=== PATIENT | female | born 1995 | race African-American/Black ===

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

== ENCOUNTER 2017-05-24 09:56 | Emergency (ER) | payer SELFPAY ==
[~2017-05-24] VITALS: Ht 157.5 cm; Wt 64.0 kg
[~2017-05-24 09:56] MED LIST: POLY10O EACH EYE
[2017-05-24 09:57] VITALS: BP 120/71; PULSE 107; RESP 20; TEMP 99.1; O2SAT 97
[2017-05-24] MEDS ORDERED: SODIUM CHLOR 0.9% 1000 ML INJ 1,000 ML IV SCH (10:20)
--- NOTE | 2017-05-24 10:24 | PD ---
HPI Chief Complaint: Abdominal Pain Time Seen by Provider: 10:09 Travel History International Travel<30 days: No Contact w/Intl Traveler<30days: No Traveled to known affect area: No History of Present Illness HPI This is a 21-year-old female who presents for evaluation of abdominal pain, nausea and vomiting. She reports that 2 weeks ago she was expressing some left- sided abdominal pain which she attributed to her menstruation. She reports that since then the pain is become more of a crampy generalized abdominal pain which has persisted. She saw a practitioner at her urgent care clinic at [facility] 2 days ago who felt that her symptoms were most likely secondary to constipation. She was given a stool softener. Her symptoms have worsened since then and now the pain has primarily migrated into the right lower quadrant of the abdomen which is what prompted the evaluation today. Pain is sharp, constant, no alleviating factors. She also endorses nausea with several episodes of nonbloody emesis over the past 2 days. She reports that initially she was having some vaginal discharge which was brown and she attributed to menstruation. This ceased 2 days ago. She is sexually active with one partner. She denies dysuria, flank pain, diarrhea. No history of abdominal surgeries. No other complaints. PFSH Past Medical History Immunizations Current: Yes ?: Not LMP: MAY 14 2017 Social History Alcohol Use: No Tobacco Use: No Substance Use: No Allergies-Medications (Allergen,Severity, Reaction): Coded Allergies: No Known Allergies (Unverified Adverse Reaction, Unknown, 05/24/17) Reported Meds & Prescriptions Reported Meds & Active Scripts Active Phenergan (Promethazine HCl) 25 Mg Tablet 25 Mg PO Q6H PRN Flagyl (Metronidazole) 500 Mg Tab 500 Mg PO BID Keflex (Cephalexin) 500 Mg Cap 500 Mg PO Q12H 7 Days Polytrim Opth Drops (Polymyxin/Trimethoprim Sulfate) 10,000-0.1 Unit/Ml-% Soln 2 Drop EACH EYE Q6HR 7 Days Review of Systems Except as stated in HPI: all other systems reviewed are Neg Physical Exam Narrative GENERAL: Well-developed well-nourished female in no acute distress. Heart rate in the low 100s. SKIN: Warm and dry. HEAD: Atraumatic. Normocephalic. EYES: Pupils equal and round. No scleral icterus. No injection or drainage. ENT: No nasal bleeding or discharge. Mucous membranes pink and moist. NECK: Trachea midline. No JVD. CARDIOVASCULAR: Regular rate and rhythm. No murmur appreciated. RESPIRATORY: No accessory muscle use. Clear to auscultation. Breath sounds equal bilaterally. GASTROINTESTINAL: Abdomen soft, focal tenderness to palpation in the right lower quadrant of the abdomen without guarding. There is mild left lower quadrant tenderness as well. Negative Rovsing's. Negative psoas sign. No tenderness to palpation in the right upper quadrant left upper quadrant. No CVA tenderness. Pelvic examination in the presence of a female nurse: Normal external genitalia. There is no cervical motion tenderness. There is scant white discharge noted in the vaginal canal. There is tenderness to palpation of the right lower quadrant/adnexal region. No masses. MUSCULOSKELETAL: No obvious deformities. No clubbing. No cyanosis. No edema. NEUROLOGICAL: Awake and alert. No obvious cranial nerve deficits. Motor grossly within normal limits. Normal speech. PSYCHIATRIC: Appropriate mood and affect; insight and judgment normal. Data Data Last Documented VS Vital Signs Date Time Temp Pulse Resp B/P (MAP) Pulse Ox O2 Delivery O2 Flow Rate FiO2 05/24/17 09:57 99.1 107 20 120/71 (87) 97 Room Air Orders Orders Complete Blood Count With Diff (05/24/17 10:20) Comprehensive Metabolic Panel (05/24/17 10:20) Lipase (05/24/17 10:20) Urinalysis - C+S If Indicated (05/24/17 10:20) Iv Access Insert/Monitor (05/24/17 10:20) Ecg Monitoring (05/24/17 10:20) Oximetry (05/24/17 10:20) Ondansetron Inj (Zofran Inj) (05/24/17 10:30) Sodium Chlor 0.9% 1000 Ml Inj (Ns 1000 M (05/24/17 10:20) Sodium Chloride 0.9% Flush (Ns Flush) (05/24/17 10:30) Ed Urine Pregnancytest Poc (05/24/17 10:20) Gc And Chlamydia Pcr (05/24/17 10:20) Wet Prep Profile (05/24/17 10:20) Ct Abd/Pel W Iv Contrast(Rout) (05/24/17 10:52) Urine Culture (05/24/17 10:32) Iohexol 350 Inj (Omnipaque 350 Inj) (05/24/17 11:17) Metronidazole (Flagyl) (05/24/17 11:45) Azithromycin Powd Pack (Zithromax Powd P (05/24/17 11:45) Ceftriaxone Inj (Rocephin Inj) (05/24/17 11:45) Lidocaine 1% Inj (50 Ml) (Xylocaine 1% I (05/24/17 11:45) Ed Discharge Order (05/24/17 11:41) Ketorolac Inj (Toradol Inj) (05/24/17 11:45) Potassium Chloride (Kcl) (05/24/17 11:45) Labs Laboratory Tests Test 05/24/17 10:30 05/24/17 10:32 05/24/17 10:40 White Blood Count 9.8 TH/MM3 Red Blood Count 4.02 MIL/MM3 Hemoglobin 11.4 GM/DL Hematocrit 33.9 % Mean Corpuscular Volume 84.4 FL Mean Corpuscular Hemoglobin 28.4 PG Mean Corpuscular Hemoglobin Concent 33.7 % Red Cell Distribution Width 13.4 % Platelet Count 295 TH/MM3 Mean Platelet Volume 7.7 FL Neutrophils (%) (Auto) 70.9 % Lymphocytes (%) (Auto) 19.5 % Monocytes (%) (Auto) 9.5 % Eosinophils (%) (Auto) 0.0 % Basophils (%) (Auto) 0.1 % Neutrophils # (Auto) 7.0 TH/MM3 Lymphocytes # (Auto) 1.9 TH/MM3 Monocytes # (Auto) 0.9 TH/MM3 Eosinophils # (Auto) 0.0 TH/MM3 Basophils # (Auto) 0.0 TH/MM3 CBC Comment DIFF FINAL Differential Comment Blood Urea Nitrogen 7 MG/DL Creatinine 0.77 MG/DL Random Glucose 83 MG/DL Total Protein 8.7 GM/DL Albumin 3.5 GM/DL Calcium Level 9.1 MG/DL Alkaline Phosphatase 46 U/L Aspartate Amino Transf (AST/SGOT) 16 U/L Alanine Aminotransferase (ALT/SGPT) 22 U/L Total Bilirubin 0.3 MG/DL Sodium Level 138 MEQ/L Potassium Level 3.2 MEQ/L Chloride Level 102 MEQ/L Carbon Dioxide Level 26.9 MEQ/L Anion Gap 9 MEQ/L Estimat Glomerular Filtration Rate 117 ML/MIN Lipase 212 U/L Urine Color YELLOW Urine Turbidity HAZY Urine pH 6.0 Urine Specific [place] 1.018 Urine Protein 30 mg/dL Urine Glucose (UA) NEG mg/dL Urine Ketones 40 mg/dL Urine Occult Blood NEG Urine Nitrite NEG Urine Bilirubin NEG Urine Urobilinogen LESS THAN 2.0 MG/DL Urine Leukocyte Esterase LARGE Urine RBC 6 /hpf Urine WBC 26 /hpf Urine Squamous Epithelial Cells 4 /hpf Urine Bacteria FEW /hpf Urine Mucus MANY /lpf Microscopic Urinalysis Comment CULTURE INDICATED Clue Cells (Wet Prep) PRESENT Vaginal Trichomonas (Wet Prep) NONE SEEN Vaginal Yeast (Wet Prep) NONE SEEN MDM Medical Decision Making Medical Screen Exam Complete: Yes Emergency Medical Condition: Yes Medical Record Reviewed: Yes Differential Diagnosis Appendicitis, tubo-ovarian abscess, ovarian torsion, pelvic inflammatory disease , ovarian cyst, ectopic , diverticulitis, colitis Narrative Course The patient will be placed on ECG monitoring pulse oximetry. IV fluids, Zofran. Plan is for lab work, urinalysis, pelvic examination. Wet prep is positive for clue cells, negative for yeast and Trichomonas. GC probe pending at the time of this dictation. Urinalysis reveals 26 wbc's, 6 rbc 's with some squamous epithelial cells, cultures currently pending. CT of the abdomen and pelvis reveals Unremarkable appearing bowel and mesentery. The appendix could not be visualized however there is no inflammation in the right lower quadrant suggest appendicitis. Reassuringly the patient is not febrile, no leukocytosis. Upon examination the patient does feel improved after the administration of Zofran and fluids. I discussed the findings of the patient's results with her. She will be treated with Flagyl for bacterial vaginosis, Keflex for urinary tract infection. He understands that the appendix could not be visualized and so if her symptoms worsen over the next 1-2 days she understands to return here. Empirically she is being given azithromycin and Rocephin pending GC results. Her potassium was 3.2 likely secondary to vomiting, this will be replenished orally here in the ED. Diagnosis Primary Impression: Bacterial vaginosis Additional Impressions: Urinary tract infection Hypokalemia Additional Instructions: Medication as prescribed. Slowly advance diet as tolerated. Phenergan for nausea. As discussed, return for any acutely new or worsening symptoms, particularly worsening right lower quadrant abdominal pain, intractable nausea and vomiting, fevers. Med/Other Pt SpecificInfo: Prescription(s) given Scripts Promethazine (Phenergan) 25 Mg Tablet 25 MG PO Q6H Y for NAUSEA OR VOMITING, #20 TAB 0 Refills Prov: Gary Samaniego MD 05/24/17 Metronidazole (Flagyl) 500 Mg Tab 500 MG PO BID for Infection, #13 TAB 0 Refills Prov: Gary Samaniego MD 05/24/17 Cephalexin (Keflex) 500 Mg Cap 500 MG PO Q12H for Infection for 7 Days, #14 CAP 0 Refills Prov: Gary Samaniego MD 05/24/17 Disposition: 01 DISCHARGE HOME Condition: Stable Curt Pat May 24, 2017 10:24
[2017-05-24] MEDS ORDERED: SODIUM CHLORIDE 0.9% FLUSH 10 ML FLUSH IV FLUSH PRN (10:30)
[2017-05-24] MEDS ORDERED: ONDANSETRON HCL 4 MG/2 ML VIAL IVP ONE (10:30)
[2017-05-24 10:45] VITALS: O2SAT 100
[2017-05-24 10:53] LABS: BASOPHIL % 0.1 % (0.0-2.0); HEMATOCRIT 33.9 % (35.0-46.0); HEMOGLOBIN 11.4 GM/DL (11.6-15.3); LYMPH % 19.5 % (9.0-44.0); LYMPHOCYTE # 1.9 TH/MM3 (1.0-4.8); MEAN CELL VOLUME 84.4 FL (80.0-100.0); MEAN CORPUSCULAR HEMOGLOBIN 28.4 PG (27.0-34.0); MEAN CORPUSCULAR HGB CONC 33.7 % (32.0-36.0); MEAN PLATELET VOLUME 7.7 FL (7.0-11.0); MONO % 9.5 % (0.0-8.0); MONOCYTE # 0.9 TH/MM3 (0-0.9); NEUT % 70.9 % (16.0-70.0); PLATELET COUNT 295 TH/MM3 (150-450); RED BLOOD COUNT 4.02 MIL/MM3 (4.00-5.30); RED CELL DISTRIBUTION WIDTH 13.4 % (11.6-17.2); WHITE BLOOD COUNT 9.8 TH/MM3 (4.0-11.0)
[2017-05-24 11:04] LABS: BACTERIA, URINE FEW /hpf; BILIRUBIN, URINE NEG (NEG); BLOOD, URINE NEG (NEG); GLUCOSE,URINE NEG (NEG); KETONE, URINE 40 mg/dL (NEG); MUCUS URINE MANY /lpf (OCC); NITRITE,URINE NEG (NEG); SQUAMOUS EPITHELIAL CELL URINE 4 /hpf (0-5); URINE COLOR YELLOW (YELLW/STRAW); URINE LEUKOCYTE ESTERASE LARGE (NEG)
[2017-05-24 11:12] LABS: ALBUMIN 3.5 GM/DL (3.4-5.0); ALT (GPT) 22 U/L (9-42); BICARBONATE 26.9 MEQ/L (21.0-32.0); BLOOD UREA NITROGEN 7 MG/DL (7-18); CALCIUM 9.1 MG/DL (8.5-10.1); CHLORIDE 102 MEQ/L (98-107); CREATININE 0.77 MG/DL (0.50-1.00); GLOMERULAR FILTRATION RATE 117 ML/MIN (>89); GLUCOSE,RANDOM 83 MG/DL (74-106); LIPASE 212 U/L (73-393); SODIUM (NA) 138 MEQ/L (136-145)
[2017-05-24 11:15] LABS: ALKALINE PHOSPHATASE 46 U/L (45-117); AST (GOT) 16 U/L (16-38); TOTAL BILIRUBIN ADULT 0.3 MG/DL (0.2-1.0); TOTAL PROTEIN 8.7 GM/DL (6.4-8.2)
[2017-05-24] MEDS ORDERED: IOHEXOL 350 MG/ML 10 ML VIAL (for RAD DIAG) IVCONTRAST ONE (11:17)
--- NOTE | 2017-05-24 11:31 | RADRPT ---
EXAM DATE/TIME: 05/24/2017 11:00 [facility] COMPARISON: No previous studies available for comparison. INDICATIONS : Abdominal pain, vomiting IV CONTRAST: 93 cc Omnipaque 350 (iohexol) IV ORAL CONTRAST: No oral contrast ingested. RADIATION DOSE: 6.64 CTDIvol (mGy) MEDICAL HISTORY : None SURGICAL HISTORY : None. ENCOUNTER: Initial ACUITY: 1 week PAIN SCALE: 10/10 LOCATION: Abdomen TECHNIQUE: Volumetric scanning of the abdomen and pelvis was performed. Using automated exposure control and ad justment of the mA and/or kV according to patient size, radiation dose was kept as low as reasonably achievable to obtain optimal diagnostic quality images. DICOM format image data is available electro nically for review and comparison. FINDINGS: LOWER LUNGS: The visualized lower lungs are clear. LIVER: Homogeneous density without lesion. There is no dilation of the biliary tree. No calcified gallston es. SPLEEN: Normal size without lesion. PANCREAS: Within normal limits. KIDNEYS: Normal in size and shape. There is no mass, stone or hydronephrosis. The left kidney is located in t he left side of the pelvis. ADRENAL GLANDS: Within normal limits. VASCULAR: There is no aortic aneurysm. BOWEL/MESENTERY: Normal contrast was given limiting sensitivity. The stomach, small bowel, and colon demonstrate no ac north fork abnormality. There is no free intraperitoneal air or fluid. ABDOMINAL WALL: Within normal limits. RETROPERITONEUM: There is no lymphadenopathy. BLADDER: No wall thickening or mass. REPRODUCTIVE: Within normal limits. INGUINAL: There is no lymphadenopathy or hernia. MUSCULOSKELETAL: Within normal limits for patient age. CONCLUSION: 1. The left kidney is located in the left side of the lower abdomen and pelvis but is otherwise unrem arkable with no hydronephrosis. Right kidney is within normal limits is in normal position. 2. The bowel and mesentery appear grossly unremarkable. The appendix could not be visualized. No oral contrast was given limiting sensitivity. Jeremy Salgado MD on May 24, 2017 at 11:24 Board Certified Radiologist. This report was verified electronically.
[2017-05-24] MEDS ORDERED: CEPH-460 PO (11:45)
[2017-05-24] MEDS ORDERED: metroNIDAZOLE 500 MG TAB PO ONE (11:45)
[2017-05-24] MEDS ORDERED: KETOROLAC TROMETHAMINE 30 MG/ML (IVP) VIAL IV PUSH ONE (11:45)
[2017-05-24] MEDS ORDERED: METR-1 PO (11:45)
[2017-05-24] MEDS ORDERED: PROM25TA10 PO (11:45)
[2017-05-24] MEDS ORDERED: cefTRIAXone 250 MG VIAL IM ONE (11:45)
[2017-05-24] MEDS ORDERED: POTASSIUM CHLORIDE 20 MEQ CONTROLLED RELEASE TAB PO ONE (11:45)
[2017-05-24] MEDS ORDERED: AZITHROMYCIN PWD FOR SUSP 1 GM PACKET PO ONE (11:45)
[2017-05-24] MEDS ORDERED: LIDOCAINE HCL 1% 50 ML VIAL IM ONE (11:45)
[2017-05-24] MEDS ORDERED: LIDOCAINE HCL 1% PF 5 ML AMPULE OTHER ONE (12:15)
[2017-05-24 12:47] VITALS: BP 118/78
== END 2017-05-24 12:47 | disposition home or self-care (01) ==
LOC: NEPD 09:56
DX: N76.0 Acute vaginitis (principal); N39.0 Urinary tract infection, site not specified; E87.6 Hypokalemia
CPT/HCPCS: 74177; 80053; 81001; 83690; 84703; 85025; 87086; 87210; 87491; 87591; 96361; 96372; 96374; 96375; 99285; J0696; J1885; J2405; J7030; Q9967

== ENCOUNTER 2017-08-03 14:14 | Emergency (ER) | payer SELFPAY ==
[~2017-08-03 14:14] MED LIST changes: +CEPH-460 PO; +METR-1 PO; +PROM25TA10 PO
[2017-08-03 14:46] VITALS: BP 122/75; PULSE 89; RESP 18; TEMP 98.5; O2SAT 100
--- NOTE | 2017-08-03 15:41 | RADRPT ---
EXAM DATE/TIME: 08/03/2017 15:22 [facility] COMPARISON: No previous studies available for comparison. INDICATIONS : Pain from pulling finger backwards. MEDICAL HISTORY : None. SURGICAL HISTORY : None. ENCOUNTER: Initial ACUITY: 1 day PAIN SCORE: 9/10 LOCATION: Left third digit, proximal phalange. FINDINGS: 4 views of the left third finger reveal an acute avulsion fracture involving the base of the proximal phalanx of the third finger. This involves the ulnar aspect. There is intra-articular extension to t his avulsion fracture. The remaining bony structures are intact. Soft tissue swelling of the third fi nger noted. CONCLUSION: Fracture of the proximal phalanx as detailed above. Scott Muñoz Jr., MD on August 03, 2017 at 15:37 Board Certified Radiologist. This report was verified electronically.
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
[2017-08-03] MEDS ORDERED: TRAM50 PO (18:45)
== END 2017-08-03 19:08 | disposition home or self-care (01) ==
LOC: NEPK 14:14
DX: S62.613A Displaced fracture of proximal phalanx of left middle finger, initial encounter for closed fracture (principal); W51.XXXA Accidental striking against or bumped into by another person, initial encounter; Y93.83 Activity, rough housing and horseplay
CPT/HCPCS: 73140; 99283